=== PATIENT | male | born 1955 | race Caucasian/White ===

== ENCOUNTER 2016-11-09 18:43 | Emergency (ER) | payer OTHER ==
[~2016-11-09] VITALS: Ht 172.7 cm; Wt 99.8 kg
[2016-11-09] MEDS ORDERED: IBUPROFEN 600 MG TABLET PO ONE ×2 (19:47→20:00)
[2016-11-09] MEDS ORDERED: IV NS 0.9% 500 ML IV ONE (20:25)
[2016-11-09] MEDS ORDERED: IV SET PRIMARY 1 EA INFUS.SET MC ONE (20:25)
[2016-11-09] MEDS ORDERED: IV NS 0.9% 500 ML BAG IV ONE (20:30)
[2016-11-09 21:03] VITALS: BP 132/79
== END 2016-11-09 21:04 | disposition home or self-care (01) ==
LOC: ER 18:57
DX: J20.9 Acute bronchitis, unspecified (principal); J06.9 Acute upper respiratory infection, unspecified; I10 Essential (primary) hypertension; E78.00 Pure hypercholesterolemia, unspecified; Z87.891 Personal history of nicotine dependence
CPT/HCPCS: 71010; 99283; A4606; J7040; Z7610